=== PATIENT | male | born 1970 | race Caucasian/White ===

== ENCOUNTER 2018-01-19 15:00 | Inpatient (IN) | payer MEDICARE, OTHER ==
[~2018-01-19] VITALS: Ht 175.3 cm; Wt 123.1 kg
[~2018-01-19 15:00] MED LIST: OXYC-323 PO
[2018-01-19] MEDS ORDERED: chlorproMAZINE IM 50 MG/2 ML AMPUL IM ONE (15:30)
[2018-01-19] MEDS ORDERED: LORazepam 2 MG/ML VIAL IV ONE ×3 (15:45→21:30)
[2018-01-19 16:11] LABS: BASO # 0.1 x10^3/uL (0.0-0.2); BASO % 1 % (0-3); EOS % 1 % (0-3); HEMATOCRIT 40.1 % (39.0-53.0); HEMOGLOBIN 13.5 g/dL (13.0-17.5); LYMPH # 3.3 x10^3/uL (1.0-4.8); LYMPH % 38 % (24-48); MEAN CORPUSCULAR HEMOGLOBIN 28 pg (25-35); MEAN CORPUSCULAR HGB CONC 34 g/dL (31-37); MEAN CORPUSCULAR VOLUME 82 fL (79-100); MONO # 1.1 x10^3/uL (0.0-1.1); MONO % 13 % (0-9); NEUT # 4.1 x10^3uL (1.8-7.7); NEUT % 48 % (31-73); PLATELET COUNT 334 x10^3/uL (140-400); RED BLOOD COUNT 4.91 x10^6/uL (4.30-5.70); RED CELL DISTRIBUTION WIDTH 13.4 % (11.5-14.5); WHITE BLOOD COUNT 8.6 x10^3/uL (4.0-11.0)
[2018-01-19 16:21] LABS: CALCIUM 9.2 mg/dL (8.5-10.1); CREATININE 1.4 mg/dL (0.7-1.3); DIRECT BILIRUBIN 0.1 mg/dL (0.0-0.2); GFR 54.1; MAGNESIUM 1.9 mg/dL (1.8-2.4); POTASSIUM 3.7 mmol/L (3.5-5.1); TOTAL BILIRUBIN 0.2 mg/dL (0.2-1.0); TOTAL PROTEIN 7.5 g/dL (6.4-8.2)
[2018-01-19 16:22] LABS: BARBITURATES NEG (NEG); BENZODIAZEPINES NEG (NEG); CANNABINOIDS NEG (NEG); COCAINE NEG (NEG); METHADONE NEG (NEG); OPIATES NEG (NEG); PHENCYCLIDINE NEG (NEG)
[2018-01-19 16:24] LABS: BACTERIA,URINE 0 /HPF (0-FEW); BILIRUBIN,URINE NEG (NEG); CLARITY,URINE CLEAR; COLOR,URINE STRAW; GLUCOSE,URINE NEG (NEG); NITRITE,URINE NEG (NEG); RBC,URINE 0 /HPF (0-2); SQUAMOUS EPITHELIAL CELL,UR OCC /LPF; UROBILINOGEN,URINE 0.2 mg/dL (0.2 mg/dL); WBC,URINE OCC /HPF (0-4)
[2018-01-19 16:27] LABS: AMPHETAMINE/METHAMPHETAMINE NEG (NEG)
--- NOTE | 2018-01-19 17:40 | PHYS DOC ---
Past History Past Medical History: Other Additional Past Medical Histor: PTSD Past Surgical History: No Surgical History Alcohol Use: None Drug Use: Marijuana Adult General Chief Complaint Chief Complaint: PSYCH EVALUATION HPI HPI 48-year-old male patient with history of PTSD brought in by EMS because of agitation and exacerbation of PTST. 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 Patient has history of tardive dyskinesia that became more active with severe movements of his face and extremities. Patient suicidal and homicidal ideation and hallucination and any pain. Patient states when he had this episodes of back flash, usually was admitted at psych hospital and asking for mental hospitalization. Review of Systems Review of Systems Constitutional: Denies fever or chills [] Eyes: Denies change in visual acuity, redness, or eye pain [] HENT: Denies nasal congestion or sore throat [] Respiratory: Denies cough or shortness of breath [] Cardiovascular: No additional information not addressed in HPI [] GI: Denies abdominal pain, nausea, vomiting, bloody stools or diarrhea [] : Denies dysuria or hematuria [] Musculoskeletal: Denies back pain or joint pain [] Integument: Denies rash or skin lesions [] Neurologic: Denies headache, focal weakness or sensory changes [] Endocrine: Denies polyuria or polydipsia [] All other systems were reviewed and found to be within normal limits, except as documented in this note. Current Medications Current Medications Current Medications Medications (Trade) Dose Ordered Sig/Ezio Start Time Stop Time Status Last Admin Dose Admin Chlorpromazine HCl (Thorazine Im) 50 mg 1X ONCE 01/19/18 15:30 01/19/18 15:31 DC 01/19/18 15:30 50 MG Lorazepam (Ativan) 2 mg 1X ONCE 01/19/18 15:45 01/19/18 15:46 DC 01/19/18 15:46 2 MG Allergies Allergies Allergies Coded Allergies Type Severity Reaction Last Updated Verified No Known Drug Allergies 10/07/16 No Physical Exam Physical Exam Constitutional: Well nourished, moderate distress, non-toxic appearance, anxious with frequent tardive dyskinesia movements of face and extremities. [] HENT: Normocephalic, atraumatic Eyes: PERRLA, EOMI, conjunctiva normal, no discharge. [] Neck: Normal range of motion, no tenderness, supple, no stridor. [] Cardiovascular:Heart rate regular rhythm, no murmur [] Lungs & Thorax: Bilateral breath sounds clear to auscultation [] Abdomen: Bowel sounds normal, soft, no tenderness, no masses, no pulsatile masses. [] Skin: Warm, dry, no erythema, no rash. [] Back: No tenderness, no CVA tenderness. [] Extremities: No tenderness, no cyanosis, no clubbing, ROM intact, no edema. [] Neurologic: Alert and oriented X 3, normal motor function, normal sensory function, no focal deficits noted. [] Psychologic: Anxious and agitated, denies suicidal and homicidal ideation and hallucination Current Patient Data Lab Results Laboratory Tests Test 01/19/18 15:40 White Blood Count 8.6 x10^3/uL (4.0-11.0) Red Blood Count 4.91 x10^6/uL (4.30-5.70) Hemoglobin 13.5 g/dL (13.0-17.5) Hematocrit 40.1 % (39.0-53.0) Mean Corpuscular Volume 82 fL (79-100) Mean Corpuscular Hemoglobin 28 pg (25-35) Mean Corpuscular Hemoglobin Concent 34 g/dL (31-37) Red Cell Distribution Width 13.4 % (11.5-14.5) Platelet Count 334 x10^3/uL (140-400) Neutrophils (%) (Auto) 48 % (31-73) Lymphocytes (%) (Auto) 38 % (24-48) Monocytes (%) (Auto) 13 % (0-9) H Eosinophils (%) (Auto) 1 % (0-3) Basophils (%) (Auto) 1 % (0-3) Neutrophils # (Auto) 4.1 x10^3uL (1.8-7.7) Lymphocytes # (Auto) 3.3 x10^3/uL (1.0-4.8) Monocytes # (Auto) 1.1 x10^3/uL (0.0-1.1) Eosinophils # (Auto) 0.0 x10^3/uL (0.0-0.7) Basophils # (Auto) 0.1 x10^3/uL (0.0-0.2) Urine Collection Type Unknown Urine Color Straw Urine Clarity Clear Urine pH 5.5 Urine Specific [place] <=1.005 Urine Protein Neg (NEG-TRACE) Urine Glucose (UA) Neg mg/dL (NEG) Urine Ketones (Stick) Neg mg/dL (NEG) Urine Blood Trace (NEG) Urine Nitrite Neg (NEG) Urine Bilirubin Neg (NEG) Urine Urobilinogen Dipstick 0.2 mg/dL (0.2 mg/dL) Urine Leukocyte Esterase Neg (NEG) Urine RBC 0 /HPF (0-2) Urine WBC Occ /HPF (0-4) Urine Squamous Epithelial Cells Occ /LPF Urine Bacteria 0 /HPF (0-FEW) Sodium Level 137 mmol/L (136-145) Potassium Level 3.7 mmol/L (3.5-5.1) Chloride Level 100 mmol/L (98-107) Carbon Dioxide Level 23 mmol/L (21-32) Anion Gap 14 (6-14) Blood Urea Nitrogen 13 mg/dL (8-26) Creatinine 1.4 mg/dL (0.7-1.3) H Estimated GFR (Cockcroft-Gault) 54.1 Glucose Level 85 mg/dL (70-99) Calcium Level 9.2 mg/dL (8.5-10.1) Magnesium Level 1.9 mg/dL (1.8-2.4) Total Bilirubin 0.2 mg/dL (0.2-1.0) Direct Bilirubin 0.1 mg/dL (0.0-0.2) Aspartate Amino Transferase (AST) 31 U/L (15-37) Alanine Aminotransferase (ALT) 47 U/L (16-63) Alkaline Phosphatase 43 U/L (46-116) L Total Protein 7.5 g/dL (6.4-8.2) Albumin 4.0 g/dL (3.4-5.0) Urine Opiates Screen Neg (NEG) Urine Methadone Screen Neg (NEG) Urine Barbiturates Neg (NEG) Urine Phencyclidine Screen Neg (NEG) Urine Amphetamine/Methamphetamine Neg (NEG) Urine Benzodiazepines Screen Neg (NEG) Urine Cocaine Screen Neg (NEG) Urine Cannabinoids Screen Neg (NEG) Ethyl Alcohol Level < 10 mg/dL (0-10) Urine Ethyl Alcohol Neg (NEG) EKG EKG [] Radiology/Procedures Radiology/Procedures [] Course & Med Decision Making Course & Med Decision Making Pertinent Labs reviewed. (See chart for details) Evaluation of patient in ER showed 48-year-old male patient brought in by EMS because of agitation and increasing tardive dyskinesia with back flash after seen a double amputee person. Patient denied suicidal and homicidal ideation and felt better with Ativan and Thorazine. Labs was unremarkable. Patient was evaluated by psychiatric physician. In care transferred to Dr. Stevenson at 1800. Dragon Disclaimer Dragon Disclaimer This electronic medical record was generated, in whole or in part, using a voice recognition dictation system. Departure Departure: Impression: Primary Impression: PTSD (post-traumatic stress disorder) Referrals: KAMI MITTAL MD (PCP) RODRICK HE MD Jan 19, 2018 17:40
[2018-01-19 22:40] VITALS: BP 124/86
[2018-01-19] MEDS: NICOTINE 14MG PATCH. TD SCH (23:00)
[2018-01-20] MEDS ORDERED: CHLO200T2 PO ×2 (00:12→10:06)
[2018-01-20] MEDS ORDERED: SERT100T PO (00:12)
[2018-01-20] MEDS ORDERED: TRAZ-90 PO (00:12)
[2018-01-20] MEDS ORDERED: PRAZ5CAP PO (00:13)
[2018-01-20] MEDS ORDERED: FENO48TA16 PO (00:13)
[2018-01-20] MEDS ORDERED: ESOM20CA PO (00:17)
[2018-01-20] MEDS: NICOTINE 14MG PATCH. TD SCH ×2 (01:54→08:31)
[2018-01-20 05:08] VITALS: BP 148/105
[2018-01-20] MEDS ORDERED: LORazepam 1 MG TABLET PO PRN (06:00)
[2018-01-20] MEDS ORDERED: CHLO50TA6 PO (10:06)
[2018-01-20] MEDS ORDERED: CHLO25TA4 PO (10:06)
[2018-01-20] MEDS ORDERED: MIRA50TA PO (10:06)
[2018-01-20] MEDS ORDERED: ESOM40CA PO (10:06)
[2018-01-20] MEDS ORDERED: FENO145T32 PO (10:06)
[2018-01-20] MEDS ORDERED: MULT1TAB52 PO (10:06)
[2018-01-20] MEDS ORDERED: OMEG-165 PO (10:06)
[2018-01-20] MEDS ORDERED: PRAZ5CAP2 PO (10:06)
[2018-01-20 11:44] VITALS: BP 149/99
[2018-01-20] MEDS ORDERED: chlorproMAZINE HCL 25 MG TABLET PO SCH ×3 (12:00→21:00)
[2018-01-20] MEDS ORDERED: OMEGA-3 FATTY ACIDS/FISH OIL 1,000 MG CAPSULE. PO SCH (12:00)
[2018-01-20] MEDS ORDERED: SERTRALINE 100 MG TABLET. PO SCH (12:00)
[2018-01-20] MEDS ORDERED: FENOFIBRATE NANOCRYSTALLIZED 145 MG TABLET PO SCH (12:00)
[2018-01-20] MEDS ORDERED: MULTIVITAMIN with MINERAL TABLET. PO SCH (12:00)
[2018-01-20] MEDS ORDERED: MIRABEGRON 25 MG TAB.ER.24H PO SCH (12:00)
[2018-01-20] MEDS ORDERED: PANTOPRAZOLE 40 MG TABLET. PO SCH (12:00)
[2018-01-20] MEDS ORDERED: CHOL10003 PO (14:35)
[2018-01-20] MEDS ORDERED: GINK120C PO (14:35)
[2018-01-20] MEDS ORDERED: GLUC1CAP48 PO (14:35)
[2018-01-20] MEDS ORDERED: VITA1000 PO (14:35)
[2018-01-20] MEDS ORDERED: VITA200C PO (14:35)
[2018-01-20 16:00] VITALS: BP 128/76
[2018-01-20] MEDS ORDERED: traZODone 100 MG TABLET. PO SCH (21:00)
[2018-01-20] MEDS ORDERED: PRAZOSIN 5 MG CAPSULE. PO SCH (21:00)
--- NOTE | 2018-01-20 21:36 | HP ---
ADMIT DATE: 01/19/2018 HISTORY OF PRESENT ILLNESS: This is a 48-year-old male patient who is known to have history of PTSD and rode to emergency medical services personnel because of agitation exacerbation of his PTSD. 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 The patient has history of tardive dyskinesia that became more active with severe movement of his face and extremities The patient has suicidal and homicidal ideation, hallucination. The patient's states that he had this episode of back flash usually, he was admitted at Psych hospital and asking to be admitted in the Psych unit. He was extensively evaluated and was admitted for observation and to arrange for placement in an inpatient Psych Unit. PAST MEDICAL HISTORY: Significant for hyperlipidemia, chronic kidney disease, osteoarthritis, morbid obesity with obstructive sleep apnea on CPAP. PAST SURGICAL HISTORY: Significant for back surgery at L4-L5 diskectomy, he has EGD and colonoscopy. ALLERGIES: He has no known drug allergies. MEDICATIONS: He is currently on the following medications: He is on fenofibrate nanocrystallized 145 mg for Tricor once a day, omega-3 fatty acid 1000 mg soft gel once a day, prazosin 2 capsules at bedtime. He is on sertraline for Zoloft 100 mg daily, trazodone 500 mg at bedtime, chlorpromazine 150 mg daily and 225 mg at bedtime. He is on Nexium 40 mg daily and Myrbetriq 50 mg once a day, multivitamin 1 tablet once a day. FAMILY HISTORY: He has 1 older sister and one brother who is younger, both healthy. His father is alive at the age of 73 and he has had myocardial infarction at the age of 44. He is known to have hypertension and coronary artery bypass graft surgery. His mother is alive at the age of 72 and she is known to have hyperlipidemia. SOCIAL HISTORY: He is , has 1 daughter. Quit smoking 5 years ago, he used to smoke one and half pack a day. He quit alcohol 3 years ago, used to be a heavy drinker. He does not use any drugs. He is currently disabled on disability secondary to PTSD. REVIEW OF SYSTEMS: The patient denied any blurring of vision, cataract, glaucoma or macular degeneration. Denied any earache, tinnitus or sensorineural deafness. Denied any nosebleeds, stuffy nose or postnasal drip. Denied any sore throat, sore tongue, toothache, hoarseness of voice. Did complain of difficulty swallowing. Denied any nausea, vomiting, diarrhea or constipation. Denied any hematemesis, melena or hematochezia. He did complain of dysuria, frequency, and nocturia, but denied any hematuria. Denied any chest pain, shortness of breath, orthopnea or paroxysmal nocturnal dyspnea. Denied any cough, phlegm or hemoptysis. Denied any dizziness, lightheadedness, or vertigo. Denied any chills, rigors or fever. PHYSICAL EXAMINATION: GENERAL: On arrival to the Emergency Room, the patient looked well and was clearly in no apparent respiratory distress, slightly pale, no jaundice, cyanosis, or thyromegaly. No jugular venous distension. No limb edema. VITAL SIGNS: His heart rate was 101, blood pressure was 149/73, temperature was 97.8, respiratory rate 20, and oxygen saturation was 95% on room air. HEAD, EYES, EARS, NOSE AND THROAT: Showed normocephalic, atraumatic. NECK: Supple. HEART: Showed normal first and second heart sounds. No gallop, rub or murmur. CHEST: Clear to auscultation. No crepitation or rhonchi. ABDOMEN: Distended, soft, nontender. No guarding or rigidity. No organomegaly. All hernial orifices are intact. Bowel sounds normal. NEUROLOGIC: He was awake, alert, responding appropriately. Cranial nerves are intact. EXTREMITIES: He moves extremities without difficulty. He ambulates without assistance or assistive devices. LABORATORY DATA: On arrival to the Emergency Room, he had lab work that showed a serum sodium 137, potassium 3.7, chloride 100, bicarbonate 23, anion gap of 14, BUN 13, creatinine 1.4, estimated GFR was 54 mL per minute. His glucose was 85, calcium was 9.2, magnesium was 1.9. Total bilirubin, AST, ALT, alkaline phosphatase were normal. Total protein was 7.5, albumin was 4. His white cell count was 8600, hemoglobin 13.5, hematocrit 40, MCV ____ and platelet count of 334,000. Urinalysis showed the urine was yellow ____ clear with a pH of 5.5, specific gravity 1.005. The urine was negative for protein, glucose, and ketones; trace of blood, negative for nitrites. His urine toxicology screen was essentially negative. IMPRESSION: In summary, this is a 48-year-old male patient who was admitted with posttraumatic stress disorder exacerbation. We will consult Dr. Chaney to evaluate him. Continue with all his medication and arrange for placement in [facility]. DARLENE ENRIQUE MD DR: KEVIN/mechelle JOB#: [id number] / [id number]
--- NOTE | 2018-01-20 23:50 | DS ---
DATE OF DISCHARGE: 01/20/2018 HOSPITAL COURSE: The patient is a 48-year-old male patient, a disabled due to PTSD, who was basically brought to the Emergency Room by the emergency medical service because of agitation, exacerbation of his PTSD. 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 He has history of tardive dyskinesia that became more active with severe movement of his face and extremities, was basically admitted for inpatient psychiatric stabilization as his stated that usually when this happens, he requires admission to Psych Unit. He actually was admitted with a one-on-one sitter and remained stable and the patient was accepted at [facility] and was discharged there for inpatient psychiatric stabilization. PHYSICAL EXAMINATION: GENERAL: When I saw him this afternoon, he looked well and was clearly in no apparent respiratory distress, pale, but no jaundice, cyanosis, or thyromegaly. No jugular venous distension. No lower limb edema. VITAL SIGNS: His heart rate was 115, blood pressure 149/99, temperature was 98.2, respiratory rate 20, and oxygen saturation was 95%. HEAD, EYES, EARS, NOSE AND THROAT: Normocephalic, atraumatic. NECK: Supple. HEART: Showed normal first and second heart sounds with no gallop, rub or murmur. CHEST: Clear to auscultation. No crepitation or rhonchi. ABDOMEN: Distended, soft, and nontender. No guarding or rigidity. No organomegaly. Hernial orifice intact. Bowel sounds normal. NEUROLOGIC: He was awake, alert. All his cranial nerves are intact. EXTREMITIES: He moves extremities without difficulty. He ambulates without assistance or assistive devices. LABORATORY DATA: Showed that his white cell count was 8600, hemoglobin 13.5, hematocrit 40, MCV 82, and platelet count of 334,000. His chemistry showed a serum sodium 137, potassium 3.7, chloride 100, bicarbonate 23, anion gap of 14, BUN 13, creatinine 1.4, estimated GFR was 57 mL per minute. His glucose was 85. Calcium was 9.2. Total magnesium was 1.9. Total bilirubin, AST, ALT, alkaline phosphatase were normal. Total protein 7.5, albumin 4. Urinalysis was unremarkable and toxicology screen was negative. DISCHARGE MEDICATIONS: He was discharged to [facility] to continue his trazodone 500 mg at bedtime, prazosin 2 mg at bedtime, fish oil 1000 mg daily, multivitamin 1 tablet once a day, Protonix 40 mg daily, chlorpromazine 200 mg at bedtime, chlorpromazine 150 mg daily, sertraline 200 mg daily, fenofibrate 145 mg daily, lorazepam 1 mg every 4 hours as needed. FINAL DISCHARGE DIAGNOSES: Acute posttraumatic stress disorder exacerbation. The patient has multiple other medical problems including hyperlipidemia, chronic kidney disease stage 2, osteoarthritis, and obstructive sleep apnea. DARLENE ENRIQUE MD DR: KEVIN/mechelle JOB#: [id number] / [id number]
[2018-01-22] MEDS ORDERED: MIRABEGRON 25 MG TAB.ER.24H PO SCH (09:00)
== END 2018-01-20 17:25 | DRG 882 ==
LOC: ER 15:00 → 1 SOUTH 22:03
PROVIDERS: ADMIT Internal Medicine; ATTEND Internal Medicine
DX: F43.11 Post-traumatic stress disorder, acute (principal); E66.01 Morbid (severe) obesity due to excess calories; Z99.81 Dependence on supplemental oxygen; Z68.41 Body mass index [BMI] 40.0-44.9, adult; R45.850 Homicidal ideations; F43.12 Post-traumatic stress disorder, chronic; E78.5 Hyperlipidemia, unspecified; G47.33 Obstructive sleep apnea (adult) (pediatric); F12.90 Cannabis use, unspecified, uncomplicated; M19.90 Unspecified osteoarthritis, unspecified site; N18.2 Chronic kidney disease, stage 2 (mild); Z82.49 Family history of ischemic heart disease and other diseases of the circulatory system; Z87.891 Personal history of nicotine dependence
CPT/HCPCS: 36415; 80048; 80076; 80307; 81001; 83735; 85025; 96372; 96374; 96376; G0480; J2060; J3230; Q0161; 99285-25; G0479